=== PATIENT | female | born 1985 | race Caucasian/White ===

== ENCOUNTER 2018-07-09 21:48 | Emergency (ER) | payer OTHER ==
[~2018-07-09] VITALS: Ht 162.6 cm; Wt 145.2 kg
[~2018-07-09 21:48] MED LIST: AZITHROMYCIN 2250 MG PO; EFFEXOR XR75 MG; IBUPROFEN 600600 M1 PO; LAMICTAL 25 MG25 M1; LATUDA80 MG PO; PREDNISONE 20 M20 M1 PO; PROVENTIL HFA6.7 G1 INH; TUSSIONEX PENN473 ML PO; VISTARIL 25 MG25 M1 PO
[2018-07-09 22:27] LABS: URINE BILIRUBIN 1+ (Negative); URINE BLOOD TRACE (Negative); URINE CLARITY SL CLOUDY; URINE COLOR YELLOW; URINE GLUCOSE-RANDOM* NEGATIVE (Negative); URINE KETONES TRACE (Negative); URINE LEUKOCYTES NEGATIVE (Negative); URINE NITRITE NEGATIVE (Negative); URINE PROTEIN (DIPSTICK) 2+ (Negative); URINE SPECIFIC GRAVITY >= 1.030 (1.005-1.035)
[2018-07-09 22:43] LABS: AMP/METHAMP POSITIVE (Negative); BARBITURATES Negative (Negative); BENZODIAZEPINES Negative (Negative); COCAINE Negative (Negative); METHADONE Negative (Negative); OPIATES Negative (Negative); PCP Negative (Negative)
[2018-07-09 22:47] LABS: BACTERIA 1-9 Few /HPF (None Seen); MUCUS 4-6 Moderate strn/LPF (None Seen); SQUAMOUS 4-10 Moderate /LPF (0-3); URINE RBC 3-10 Few /HPF (0-2); URINE WBC 0-5 Rare /HPF (0-5)
[2018-07-09 22:48] LABS: CASTS None Seen /LPF (None Seen); CRYSTALS None Seen /LPF (None Seen)
[2018-07-09 23:54] LABS: ABSOLUTE NEUTROPHILS 4.8 thou/uL (1.4-8.2); BASOPHILS 1.1 % (0.0-2.0); EOSINOPHILS 0.6 % (0.0-3.0); HEMATOCRIT 38.8 % (37.0-47.0); HEMOGLOBIN 13.2 gm/dL (12.0-15.0); LYMPHOCYTES 27.5 % (24.0-44.0); MCHC 33.9 g/dL (28.0-37.0); MCV 85.7 fL (80.0-100.0); MONOCYTES 7.6 % (1.0-8.0); PLATELET COUNT 319 thou/uL (150-400); POLYS 63.2 % (36.0-66.0); RBC 4.53 mil/uL (4.20-5.00); RDW 13.2 % (10.5-14.5); WBC 7.6 thou/uL (4.0-11.0)
[2018-07-10 00:04] LABS: ANION GAP 10 mmol/L (7-16); BUN 20 mg/dL (7-18); CHLORIDE 102 mmol/L (98-107); CO2 29 mmol/L (21-32); CREATININE 0.9 mg/dL (0.6-1.0); GLUCOSE 113 mg/dL (74-106); POTASSIUM 3.1 mmol/L (3.5-5.1); SODIUM 141 mmol/L (136-145)
[2018-07-10 00:11] LABS: ALBUMIN 3.7 g/dL (3.4-5.0); SALICYLATE < 2.8 mg/dL (2.8-20.0); SGOT 36 U/L (15-37); SGPT 42 U/L (30-65); TOTAL BILIRUBIN 0.8 mg/dL (<0.1-1.0); TOTAL PROTEIN 8.5 g/dL (6.4-8.2)
[2018-07-10 17:51] LABS: CALCIUM 8.8 mg/dL (8.5-10.1); POTASSIUM 3.4 mmol/L (3.5-5.1)
[2018-07-11 00:20] VITALS: BP 91/68
== END 2018-07-11 00:20 ==
LOC: ER 21:48
PROVIDERS: Emergency Medicine; Physician Assistant
DX: T42.6X2A Poisoning by other antiepileptic and sedative-hypnotic drugs, intentional self-harm, initial encounter (principal); F31.9 Bipolar disorder, unspecified; F20.9 Schizophrenia, unspecified; Z88.5 Allergy status to narcotic agent; Y92.89 Other specified places as the place of occurrence of the external cause